=== PATIENT | male | born 1970 | race African-American/Black ===

== ENCOUNTER 2017-12-30 17:09 | Emergency (ER) | payer SELFPAY ==
[~2017-12-30] VITALS: Ht 170.2 cm; Wt 68.0 kg
[2017-12-30 17:20] VITALS: BP 130/87
[2017-12-30] MEDS ORDERED: HYDROCODONE/APAP 5/325MG 1 EACH TABLET PO ONE (18:00)
[2017-12-30] MEDS ORDERED: IBUPROFEN 600 MG TABLET PO ONE ×2 (18:00→18:09)
[2017-12-30] MEDS ORDERED: HYDROCODONE/APAP 5/325MG 1 EACH TABLET ONE (18:09)
--- NOTE | 2017-12-30 18:59 | NUR ---
PT STATES NEED TO TAKE CARE OF SOMETHING AND NEEDS TO LEAVE. UNABLE TO TAKE XRAY. AMA FORM SIGNED.
== END 2017-12-30 19:01 | disposition left against medical advice (07) ==
LOC: ER 17:15
DX: S99.821A Other specified injuries of right foot, initial encounter (principal); J45.909 Unspecified asthma, uncomplicated; E11.9 Type 2 diabetes mellitus without complications; V03.90XA Pedestrian on foot injured in collision with car, pick-up truck or van, unspecified whether traffic or nontraffic accident, initial encounter; Y93.89 Activity, other specified; Y92.413 State road as the place of occurrence of the external cause; Y99.8 Other external cause status
CPT/HCPCS: A4606; Z7610

== ENCOUNTER 2018-01-03 02:40 | Emergency (ER) | payer SELFPAY ==
[~2018-01-03] VITALS: Ht 170.2 cm; Wt 83.9 kg
--- NOTE | 2018-01-03 03:22 | NUR ---
PT AMBULATED TO THE BATHROOM WITH A LIMP.
--- NOTE | 2018-01-03 03:40 | NUR ---
XRAY DONE AT THE BEDSIDE
[2018-01-03] MEDS ORDERED: ONDANSETRON HCL/PF 4 MG/2 ML VIAL ONE (03:47)
[2018-01-03] MEDS ORDERED: IV NS 0.9% 1,000 ML BAG IV ONE (04:00)
[2018-01-03] MEDS ORDERED: ONDANSETRON HCL/PF 4 MG/2 ML VIAL IVP ONE (04:00)
--- NOTE | 2018-01-03 04:02 | NUR ---
PT REC'D MEDICATION ORDERED.
[2018-01-03 04:06] LABS: BASOPHILS % (AUTO) 0.3 % (0.0-2.0); EOSINOPHILS # (AUTO) 0.1 /CMM (0.0-0.7); EOSINOPHILS % (AUTO) 1.1 % (0.0-6.0); HEMATOCRIT 43 % (39-51); HEMOGLOBIN 14.8 g/dL (13.5-17.5); LYMPHOCYTES # (AUTO) 2.2 /CMM (0.8-4.8); LYMPHOCYTES % (AUTO) 32.8 % (20.0-44.0); MEAN CORPUSCULAR HEMOGLOBIN 31 PG (26.0-33.0); MEAN CORPUSCULAR HGB CONC 35 g/dl (31.0-36.0); MEAN CORPUSCULAR VOLUME 91 fL (80-96); MONOCYTES # (AUTO) 0.5 /CMM (0.1-1.30); MONOCYTES % (AUTO) 7.7 % (2.0-12.0); NEUTROPHILS # (AUTO) 3.8 /CMM (1.8-8.9); NEUTROPHILS % (AUTO) 58.1 % (43.0-81.0); PLATELET COUNT (AUTO) 184 /CMM (150-450); RDW COEFFICIENT OF VARIATION 12.6 (11.5-15.0); WHITE BLOOD COUNT (AUTO) 6.6 K/uL (4.3-11.0)
[2018-01-03 04:28] LABS: BILIRUBIN,DIRECT 0.2 mg/dL (0.0-0.2); BILIRUBIN,TOTAL 0.6 mg/dL (0.2-1.0); CALCIUM, SERUM 8.9 mg/dL (8.5-10.1); CREATININE 1.2 mg/dL (0.6-1.3); POTASSIUM 4.9 mmol/L (3.5-5.1)
[2018-01-03] MEDS ORDERED: IV PREMIX 0.45% NS + KCL 1,000 ML IV ONE ×2 (04:44→05:08)
[2018-01-03] MEDS ORDERED: INSULIN REGULAR, HUMAN 100 UNIT/ML 10 ML VIAL ONE (04:49)
[2018-01-03] MEDS ORDERED: POTASSIUM CHLORIDE 20 MEQ TAB.PRT.SR PO ONE ×2 (04:49→05:00)
[2018-01-03] MEDS ORDERED: INSULIN REGULAR, HUMAN 100 UNIT/ML 10 ML VIAL IV ONE (05:00)
--- NOTE | 2018-01-03 07:35 | NUR ---
REPORT GIVEN TO LIANNA MORENO FOR [facility].
--- NOTE | 2018-01-03 07:36 | NUR ---
RECEIVED REPORT FOR [facility].
[2018-01-03 08:12] LABS: POTASSIUM 4.2 mmol/L (3.5-5.1)
--- NOTE | 2018-01-03 08:35 | NUR ---
REPEAT BS [id number]
[2018-01-03 08:41] VITALS: BP 104/58
--- NOTE | 2018-01-03 08:42 | NUR ---
IV removed. Catheter intact and site benign. Pressure and 4x4 applied to site. No bleeding noted. Patient discharged to home in stable condition. Written and verbal after care instructions given. Patient verbalizes understanding of instruction.
== END 2018-01-03 08:41 | disposition home or self-care (01) ==
LOC: ER 02:43
DX: S97.81XA Crushing injury of right foot, initial encounter (principal); E11.65 Type 2 diabetes mellitus with hyperglycemia; J45.909 Unspecified asthma, uncomplicated; Z79.4 Long term (current) use of insulin; W23.0XXA Caught, crushed, jammed, or pinched between moving objects, initial encounter; Y93.89 Activity, other specified; Y92.89 Other specified places as the place of occurrence of the external cause; Y99.8 Other external cause status
CPT/HCPCS: 36415; 73630; 73700; 80048; 80051; 80076; 82962 ×3; 83690; 84484; 85025; 93005; 96361; 96374; 96375; 99285; A4606; J1815; J2405; J7030; Z7610